=== PATIENT | male | born 1940 | race Caucasian/White ===

== ENCOUNTER 2022-04-29 19:54 | Emergency (ER) | payer OTHER ==
[~2022-04-29] VITALS: Ht 170.2 cm; Wt 81.6 kg
[2022-04-29 20:00] VITALS: BP 152/70
--- NOTE | 2022-04-29 20:07 | NUR ---
Patient ambulated to bed 12.
[2022-04-29] MEDS ORDERED: LIDOCAINE MPF 1% 5 ML ONE (21:20)
[2022-04-29] MEDS ORDERED: LIDOCAINE MPF 1% 10 MG/ML VIAL INJ ONE (21:25)
[2022-04-29] MEDS ORDERED: BACITRACIN OINT 500 UNITS/GM PKT TP ONE ×2 (22:09→22:10)
--- NOTE | 2022-04-29 22:19 | NUR ---
Called patient's sister to inform that patient is discharged and needs to be picked up. per sister will come in 5-10mins. pt aware and will wait out in the lobby.
--- NOTE | 2022-04-29 22:19 | NUR ---
Patient discharged. Written and verbal after care instructions given and explained. Patient verbalized understanding. Ambulatory with steady gait. ID band removed. All questions addressed prior to discharge. Advised to follow up with PMD.
== END 2022-04-29 22:19 | disposition home or self-care (01) ==
LOC: MED 19:54
DX: S61.412A Laceration without foreign body of left hand, initial encounter (principal); W45.8XXA Other foreign body or object entering through skin, initial encounter; Y93.89 Activity, other specified; Y92.89 Other specified places as the place of occurrence of the external cause; Y99.8 Other external cause status
CPT/HCPCS: 12002; 99282; J2001